=== PATIENT | female | born 1995 | race Caucasian/White ===

== ENCOUNTER 2016-12-06 05:12 | Inpatient (IN) ==
[2016-12-06] MEDS ORDERED: Ringers Solution, Lactated 1,000 ML ONE ×2 (05:21→05:29)
--- NOTE | 2016-12-06 05:26 | OB/GYN History & Physical ---
Date of Encounter: 12/06/16 Time of Encounter: 05:24 Assessment and Plan (1) 40 weeks gestation of Current visit: Yes Status: Acute (2) Spontaneous onset of labor Current visit: Yes Status: Acute (3) heart rate decelerations affecting management of mother Current visit: Yes Status: Acute The patient is receiving IV fluids and left uterine displacement. Internal monitors will be placed. Anesthesia notified. Oxygen as needed. If no response may need section for delivery. History of Present Illness Chief complaint: labor HPI: Ms. MAJANO is a 21 year old female in spontaneous labor at term as a patient of a meter supervisor out of town who is brought in by the lay out drafter reporting that the patient has had decreases in heart rate during labor. She states that she has spontaneous onset of labor at 10 PM with spontaneous rupture of membranes that "may have had staining "at the time of arrival. She was 3 cm at the onset of labor and had been 5 cm for the meter supervisor. It has been reported there has been no vaginal bleeding. Fetus has been active prior to onset of labor. It is reported that there has been no complications with the until this point. The patient reports her blood type is AB+. Minimal records have been brought with the patient. We do have records that she is GBS negative Past Med Surg Social Fam HX - Past Medical History Source: patient Medical history: no medical history Psychiatric history: no psych history - Past Surgical History Surgical History: no surgical history - Social History Smoking Status: Never smoker Smokeless Tobacco Status: No Alcohol use: none Drug use: none Obstetrical History - Pregnancies : 1 Review of System OB All systems PM: reviewed and no additional remarkable complaints except as stated - Constitutional Constitutional ROS IM: weight gain - Gastrointestinal Gastrointestinal: cramping Exam - Vital Signs Vital signs: Maternal vital signs pending, with heart rate baseline 140s with variable/ late decelerations with 2 contractions and then seen that are about 5 minutes apart - Constitutional Constitutional: well developed, well nourished, average body habitus, moderate distress - HEENT HEENT: Normocephaly, Mucus Membranes Moist - Neck Neck exam: supple - Lungs Respiratory exam: CTAB - Cardiovascular Cardiovascular exam: RRR - Abdomen Abdomen: Present: bowel sounds normal, gravid, non tender - Extremities Extremities exam: pedal edema Deep Tendon Reflex Grade: 3+ Normal But Brisk - Vulva Vulva: bilateral: normal - Vagina Vagina: Present: normal moisture - Cervix Dilation: 5 Effacement: 100 Station: 0 - Anus/Rectum Anus/Rectum: Present: normal perianal skin Results All other labs normal.
--- NOTE | 2016-12-06 05:28 | Anesthesia Evaluation PreOp ---
Date of Encounter: 12/06/16 Time of Encounter: 05:25 - Past History Planned Operation: kiarra Cardiac History: Denies any Significant Hx Pulmonary History: Denies Any Significant HX Other Medical History: Denies Any Significant HX Anesthesia History: No Prior Anesthetic Complications, Past Anesthesia : Yes (40 weeks, ) Alcohol Use: none Drug use: none - Meds/Allergy Pre-op Review Medications Reviewed: Yes Allergies Reviewed: Yes Beta Blockers on Current Med List: No Anesthesia Exam bp 128/77 59 18 spo2 98 Height: 63 Weight: 73 NPO (# of Hours): yogurt at midnight - HEENT Pupil (Motor): Pupils equal Mallampati: II Teeth: Normal Oral Opening: Greater than 3 - SERVICE WRITER LOC: Oriented SERVICE WRITER Motor: Normal RUE, Normal LUE, Normal RLE, Normal LLE, Normal Face SERVICE WRITER Sensory: Normal: RUE, LUE, RLE, LLE, Face - Cardiac Rhythm: Regular Murmur: None JVD: No Carotid Bruit: No - Pulmonary Breath Sounds: bilateral Clear Respiratory Effort: Symmetrical Anesthesia Assess/Plan ASA Score: 2 Modified Shahrzad Scale for Level of Consciousness: Cooperative, oriented, and tranquil Anesthetic Plan: Regional Autologous Blood: No Monitoring Plan: Standard Monitors
[2016-12-06] MEDS ORDERED: Famotidine 20 MG/2 ML VIAL IVP PRN (05:37)
[2016-12-06] MEDS ORDERED: Metoclopramide 10 MG/2 ML VIAL IVP PRN ×2 (05:37→07:35)
[2016-12-06] MEDS ORDERED: Ringers Solution, Lactated 1,000 ML IVC SCH ×2 (05:45→07:30)
--- NOTE | 2016-12-06 05:48 | OB Labor Progress Note ---
Date of Encounter: 12/06/16 Time of Encounter: 05:47 Labor Progress Note - Subjective Subjective: The patient is uncomfortable with her contractions. - Vital Signs Vital Signs: Afebrile, vital signs stable - Cervix Cervix: 5/90/0 - Heart Tones Heart Tones: 140s, category 1 - [place]: Contractions every 2-4 minutes 40-60 mmHg - Interventions Interventions: 40 week IUP with care elsewhere in active labor with category 2 tracing at arrival - Plan Plan: IV fluids given, oxygen by facemask placed, patient in left uterine position. Internals placed. IV fluid bolus going. heart rate pattern improved with current treatment. Continue close observation
[2016-12-06 05:53] LABS: Basophils % 0.1 %; Eosinophils % 0.3 %; Hematocrit 32.2 % (35.3-44.9); Hemoglobin 11.3 g/dL (11.5-15.4); Immature Granulocytes % 0.3 % (0-4); Lymphocytes # 2.1 K/mcL (0.6-4.6); Lymphocytes % 17.4 %; Mean Corpuscular HGB Conc 35.1 g/dL (31.6-35.5); Mean Corpuscular Volume 91.2 fL (83.0-100.0); Mean Platelet Volume 11.7 fL (9.4-12.4); Monocytes % 8.4 %; Neutrophils # 8.9 K/mcL (1.6-8.9); Platelet Count 172 K/mcL (140-400); Red Blood Count 3.53 M/mcL (3.82-4.97); Red Cell Distribution Width 12.6 % (11.5-14.5); Segmented Neutrophils % 73.5 %
[2016-12-06] MEDS ORDERED: *HR* Morphine Sulfate/PF 5 MG/10 ML AMPUL ONE (06:26)
[2016-12-06] MEDS ORDERED: *HR* FentaNYL (PF) 100 MCG/2 ML VIAL ONE (06:26)
[2016-12-06] MEDS ORDERED: *HR* Oxytocin 10 UNIT/ML VIAL IM ONE (06:27)
[2016-12-06] MEDS ORDERED: EPHEDrine 50 MG/ML VIAL ONE (06:38)
[2016-12-06] MEDS ORDERED: Oxytocin 20 units/ LR 1000 mL 20 UNIT/1,000 ML BAG IVC ONE (07:20)
[2016-12-06] MEDS ORDERED: Ondansetron 4 MG/2 ML VIAL IVP PRN (07:35)
[2016-12-06] MEDS ORDERED: Sennosides 8.6 MG TABLET PO PRN (07:35)
[2016-12-06] MEDS ORDERED: Oxytocin 20 units/ LR 1000 mL 20 UNIT/1,000 ML BAG IV SCH (07:45)
--- NOTE | 2016-12-06 08:06 | OB/GYN Procedure Note ---
Section - Date of procedure: 12/06/16 Preop diagnosis: category 2 FHT tracing Post-op diagnosis: same Procedure: primary low transverse Surgeon: Pablo Maldonado Estimated blood loss (cc): 500 Anesthesia Type: Spinal section complications: none Disposition: PACU Specimens: Placenta - Infant (s) A Infant Delivery Date: 12/06/16 Infant Delivery Time: 06:43 Presentation: vertex Position: MARTIN Gender: Male Viability: Viable Pounds: 5 Ounces: 7 at 1 minute: 6 at 5 minutes: 7 Specimens collected: cord blood, arterial cord gases Placenta: complete extraction Cord: nuchal cord - Narrative Narrative: Patient was taken to the operating room. Continuous monitoring was performed. Patient underwent satisfactory spinal anesthesia. At that time, bradycardia occurred. She was prepped and draped in usual manner. Brief timeout was obtained. The abdomen was entered to a standard Maylard incision. Peritoneum overlying the lower uterine segment was incised in a U-shaped fashion. The Zully retractor was placed. Uterine cavity was extended laterally. Membranes ruptured yielding thick meconium fluid. With fundal pressure the head was delivered. Nuchal cordwas relieved. was suctioned upon delivery of the head. The remainder of the was removed and the umbilical cord doubly clamped and cut and the was handed to nurse staff for further evaluation. The placenta was removed and sent to pathology for analysis. The uterus was closed in single layer using 0 Monocryl. After assurance of hemostasis, uterus was placed back within the abdominal cavity. The abdomen was closed in her fashion using 0 Vicryl in the fascia and skin clips on the skin. Sterile dressing was applied. She did well and was taken to recovery room in satisfactory condition. Counts were correct.
--- NOTE | 2016-12-06 08:24 | Anesthesia Evaluation Post Op ---
Date of Encounter: 12/06/16 Time of Encounter: 08:23 - Vital Signs Vital Signs: Vital Signs/O2 Sat/Glucose, Most Current Temp Pulse Resp BP 12/06/16 05:25 98.8 F 58 14 128/77 - Lungs Lungs: Clear Ascult./Percussion - Airway Airway: Non-obstructed - Cardiovascular Regular Rate, Baseline Rhythm - Mental Status Mental Status: Alert & Oriented, Answers Appropriately - Pain Pain Scale: 0 Pain Scale used: Numeric (1 - 10) - Nausea Vomiting Nausea Vomiting: Not Present - Hydration Hydration: NPO, Faulkner catheter Notes: 12/06/16 08:23 pt comfortable and feeding - Discharge PostOp Status: Transfer Patient to floor
[2016-12-06] MEDS ORDERED: *HR* Morphine 2 MG/ML SYRINGE IVP PRN (09:58)
[2016-12-06] MEDS ORDERED: *HR* HYDROmorphone (PF) 1 MG/ML SYRINGE IVP PRN (09:58)
[2016-12-06] MEDS: *HR* OxyCODONE/APAP 5/325 TABLET PO PRN ×2 (15:04→19:49)
[2016-12-06] MEDS: Ibuprofen 600 MG TABLET PO PRN (19:51)
[2016-12-07 03:28] LABS: Eosinophils # 0.1 K/mcL (0.0-0.6); Eosinophils % 0.8 %; Hemoglobin 10.4 g/dL (11.5-15.4); Immature Granulocytes % 0.4 % (0-4); Lymphocytes # 1.5 K/mcL (0.6-4.6); Lymphocytes % 12.4 %; Mean Corpuscular HGB Conc 33.5 g/dL (31.6-35.5); Mean Corpuscular Hemoglobin 31.7 pg (28.0-33.3); Mean Corpuscular Volume 94.5 fL (83.0-100.0); Mean Platelet Volume 11.4 fL (9.4-12.4); Monocytes # 0.8 K/mcL (0.0-1.3); Monocytes % 6.8 %; Neutrophils # 9.4 K/mcL (1.6-8.9); Platelet Count 132 K/mcL (140-400); Red Blood Count 3.28 M/mcL (3.82-4.97); Red Cell Distribution Width 13.1 % (11.5-14.5); Segmented Neutrophils % 79.6 %
[2016-12-07] MEDS: Ibuprofen 600 MG TABLET PO PRN ×3 (05:32→19:46)
[2016-12-07] MEDS: Simethicone 80 MG TAB.CHEW PO PRN ×3 (08:06→23:13)
[2016-12-07] MEDS: Prenatal Vit/FA 1 EACH TABLET PO SCH (08:06)
[2016-12-07] MEDS: *HR* OxyCODONE/APAP 5/325 TABLET PO PRN ×3 (10:18→23:13)
--- NOTE | 2016-12-07 10:59 | OB/GYN Progress Note ---
Date of Encounter: 12/07/16 Time of Encounter: 10:54 - Assessment and Plan (1) Status post Current Visit: Yes Status: Acute advised patient to take [place] for better pain control, ambulation encouraged, cont current inpt care, discharge POD#2 Subjective - Subjective Patient reports: appetite normal, voiding normally, ambulating normally : in NICU (pain is not well controlled, in NICU doing well) Objective - Vital Signs Latest vital signs: Vital Signs Temp Pulse Resp BP Pulse Ox 12/07/16 08:00 16 12/07/16 07:55 98.2 F 65 16 120/79 12/07/16 03:34 98 F 65 18 123/78 98 12/06/16 23:00 98.1 F 62 18 123/77 97 12/06/16 19:08 98.4 F 68 16 119/79 98 12/06/16 18:49 98.4 F 68 16 119/79 98 12/06/16 12:30 98.1 F 60 16 126/76 12/06/16 11:30 98.1 F 69 16 125/73 98 Intake and Output 12/06/16 12/07/16 12/07/16 23:59 07:59 15:59 Intake Total 1500 / 1500 1240 / 1240 Output Total 400 / 400 1600 / 1600 800 / 800 Balance -400 / -400 -100 / -100 440 / 440 Intake: IV Fluids 1000 / 1000 1000 / 1000 Oral 500 / 500 240 / 240 Output: Urine 400 / 400 800 / 800 Catheter 400 / 400 1200 / 1200 Other: Meal Breakfast Percent of Meal Consumed 100% Weight 73.1 kg Patient Weight 12/07/16 23:59 Weight 73.1 kg - Exam Lungs: bilateral: normal Chest: Normal S1, Normal S2 Extremities: Present: normal Abdomen: Present: normal appearance, soft Incision: Present: dry, intact Uterus: Present: normal - Labs Labs: Laboratory Results - last 24 hr 12/07/16 03:00 WBC 11.7 H RBC 3.28 L Hgb 10.4 L Hct 31.0 L MCV 94.5 MCH 31.7 MCHC 33.5 RDW 13.1 Plt Count 132 L MPV 11.4 Immature Gran % 0.4 Seg Neutrophils % 79.6 Lymphocytes % 12.4 Monocytes % 6.8 Eosinophils % 0.8 Basophils % 0.0 Neutrophils # 9.4 H Lymphocytes # 1.5 Monocytes # 0.8 Eosinophils # 0.1 Basophils # 0.0
[2016-12-08] MEDS: Ibuprofen 600 MG TABLET PO PRN ×2 (05:01→11:26)
[2016-12-08] MEDS: Prenatal Vit/FA 1 EACH TABLET PO SCH (07:59)
[2016-12-08] MEDS: Simethicone 80 MG TAB.CHEW PO PRN (08:00)
[2016-12-08] MEDS: *HR* OxyCODONE/APAP 5/325 TABLET PO PRN ×2 (08:05→12:29)
[2016-12-08 08:13] VITALS: BP 122/78
--- NOTE | 2016-12-08 08:25 | Discharge Summary ---
Date of Encounter: 12/08/16 Time of Encounter: 08:23 - Discharge Diagnosis (1) Status post Priority: Primary Status: Acute Comments: Ms Scruggs is 2 days status post for heart rate decelerations during labor. Patient reports that she is doing well and has had minimal vaginal bleeding. Incision is clean, dry and intact with no noted drainage. Patient is ambulating appropriately. She is tolerating her diet and bowel/ bladder function intact. Patient will be discharged and will stay as a guest as her baby is still in the special care nursery with TTN. - Discharge Medications Prescriptions: OxyCODONE/APAP 5/325 [Percocet 5/325 MG] 1 each PO Q4HR PRN #40 tablet PRN Reason: Moderate pain 4-6 Ibuprofen [Motrin] 600 mg PO Q6HR PRN #40 tablet PRN Reason: Cramping Home Medications: Ibuprofen [Motrin] 600 mg PO Q6HR PRN #40 tablet 12/08/16 [Rx] OxyCODONE/APAP 5/325 [Percocet 5/325 MG] 1 each PO Q4HR PRN #40 tablet 12/08/16 [Rx] Allergies/Adverse Reactions: Allergies No Known Allergies Allergy (Verified 12/06/16 05:37) Data Procedures and tests throughout hospitalization: Laboratory Tests 12/06/16 12/06/16 12/07/16 05:25 05:25 03:00 WBC 12.2 H 11.7 H RBC 3.53 L 3.28 L Hgb 11.3 L 10.4 L Hct 32.2 L 31.0 L MCV 91.2 94.5 MCH 32.0 31.7 MCHC 35.1 33.5 RDW 12.6 13.1 Plt Count 172 132 L MPV 11.7 11.4 Immature Gran % 0.3 0.4 Seg Neutrophils % 73.5 79.6 Lymphocytes % 17.4 12.4 Monocytes % 8.4 6.8 Eosinophils % 0.3 0.8 Basophils % 0.1 0.0 Neutrophils # 8.9 9.4 H Lymphocytes # 2.1 1.5 Monocytes # 1.0 0.8 Eosinophils # 0.0 0.1 Basophils # 0.0 0.0 Blood Type AB POSITIVE Date of admission: 12/06/16 05:12 Primary care physician: PCP NO Discharging clinician: Pablo Maldonado Anticipated date of discharge: 12/08/16 - Patient Status Disposition: Home, Self-Care Condition: Good Overall status at discharge: patient is progressing back to baseline - Discharge Instructions Instructions: Section (DC) Follow Up With: NO,PCP [Primary Care Provider] - Additional Instructions: Follow up with outside provider in 7 days for staple removal. - Diet and Activity Activity: increase activity as tolerated Diet: advance to your usual diet Hospital Course Reason for admission: active labor Delivery: section Episiotomy: none Other procedures: none complications: none Discharge diagnosis: IUP at term delivered baby: male Hospital course: Ms Scruggs is a 21yo female who was who was sent by a department administrator due to decreased in heart rate with labor. Patient was given fluids and then taken for a . Patient is now 2 days status post and doing well. Baby is in special care nursery with TTN as such mom will stay as guest after discharge. Time Attestation: Total time spent providing and/or coordinating discharge services: - VTE Reasons for not Prescribing Prophylaxis: Treatment not Indicated - Low risk for VTE Documentation of Mechanical Device: Intermittent pneumatic compression device Exam - Constitutional Vitals: Temp Pulse Resp BP Pulse Ox 98.2 F 61 16 122/78 98 12/08/16 08:12 12/08/16 08:12 12/08/16 08:12 12/08/16 08:12 12/07/16 19:45 General appearance IM: A&O X 3, no acute distress, answers questions appropriately - Respiratory Respiratory exam: Present: CTAB - Cardiovascular Cardiovascular exam IM: Present: RRR - GI/Abdominal GI/Abdominal exam IM: normal bowel sounds Incision: normal, dry, intact - Neurological Exam Neurological exam: alert, CN II-XII intact, oriented X3
[2016-12-08] MEDS ORDERED: Lanolin 7 G OINT...G. TP PRN (12:08)
== END 2016-12-08 12:20 | disposition home or self-care (01) | DRG 766 ==
LOC: 1NENULAB 05:12 → 1NENUOBS 09:23
PROVIDERS: ADMIT Obstetrics & Gynecology; ATTEND Obstetrics & Gynecology